=== PATIENT | female | born 1995 | race African-American/Black ===

== ENCOUNTER 2020-07-14 09:09 | Emergency (ER) | payer BC ==
[~2020-07-14] VITALS: Ht 157.5 cm; Wt 97.5 kg
[2020-07-14 09:14] VITALS: BP 105/70; Ht 157.5 cm; Wt 97.5 kg
== END 2020-07-14 11:27 | disposition home or self-care (01) ==
LOC: ED 09:09
DX: R04.2 Hemoptysis (principal); J18.9 Pneumonia, unspecified organism; Z88.0 Allergy status to penicillin